=== PATIENT | female | born 1955 | race Caucasian/White ===

== ENCOUNTER 2024-01-18 10:05 | Outpatient (RCR) | payer MEDICARE, SELFPAY ==
[2024-01-18 10:20] VITALS: BP 128/73
[2024-01-18] MEDS: RECLAST 100 IV (10:50)
[2024-01-18 11:21] VITALS: BP 105/57
[2024-01-18] MEDS: FASENRA 30 MG SC (11:52)
== END 2024-01-19 23:59 | disposition home or self-care (01) ==
LOC: OID 10:05
PROVIDERS: ATTENDING PHYSICIAN Internal Medicine Critical Care Medicine; FAMILY PHYSICIAN Nurse Practitioner Family
DX: J45.50 Severe persistent asthma, uncomplicated (principal); M81.0 Age-related osteoporosis without current pathological fracture; R91.8 Other nonspecific abnormal finding of lung field
CPT/HCPCS: 36415; 96365; 96372; J0517; J3489

== ENCOUNTER → 2024-02-08 10:17 | Outpatient (REF) | payer MEDICARE, SELFPAY | LOC: HWWDC 10:17 | PROVIDERS: ATTENDING PHYSICIAN Obstetrics & Gynecology; FAMILY PHYSICIAN Nurse Practitioner Family | DX: Z12.31 Encounter for screening mammogram for malignant neoplasm of breast (principal) | CPT/HCPCS: 77063; 77067 ==

== ENCOUNTER 2024-03-14 14:41 | Outpatient (RCR) | payer MEDICARE, SELFPAY ==
[2024-03-14 14:50] VITALS: BP 126/61
[2024-03-14] MEDS: FASENRA 30 MG SC (14:57)
== END 2024-03-15 09:17 | disposition home or self-care (01) ==
LOC: OID 14:41
PROVIDERS: ATTENDING PHYSICIAN Internal Medicine Critical Care Medicine; FAMILY PHYSICIAN Nurse Practitioner Family
DX: J45.50 Severe persistent asthma, uncomplicated (principal); R91.8 Other nonspecific abnormal finding of lung field; M81.0 Age-related osteoporosis without current pathological fracture
CPT/HCPCS: 96372; J0517

== ENCOUNTER → 2024-03-22 15:08 | Outpatient (REF) | payer MEDICARE, SELFPAY | LOC: HWRAD 15:08 | PROVIDERS: ATTENDING PHYSICIAN Surgery; FAMILY PHYSICIAN Nurse Practitioner Family | DX: R10.2 Pelvic and perineal pain (principal) | CPT/HCPCS: 74178; Q9967 ==

== ENCOUNTER 2024-05-21 10:55 | Outpatient (RCR) | payer MEDICARE, SELFPAY ==
[2024-05-21 11:07] VITALS: BP 130/59
[2024-05-21] MEDS: FASENRA 30 MG SC (11:23)
== END 2024-05-21 14:51 | disposition home or self-care (01) ==
LOC: OID 10:55
PROVIDERS: ATTENDING PHYSICIAN Internal Medicine Critical Care Medicine; FAMILY PHYSICIAN Nurse Practitioner Family
DX: J45.50 Severe persistent asthma, uncomplicated (principal); R91.8 Other nonspecific abnormal finding of lung field; M81.0 Age-related osteoporosis without current pathological fracture; G47.33 Obstructive sleep apnea (adult) (pediatric)
CPT/HCPCS: 96372; J0517

== ENCOUNTER 2024-07-16 11:30 | Outpatient (RCR) | payer MEDICARE, SELFPAY ==
[2024-07-16 11:37] VITALS: BP 117/54
[2024-07-16] MEDS: FASENRA 30 MG SC (11:49)
== END 2024-07-17 09:07 | disposition home or self-care (01) ==
LOC: OID 11:30
PROVIDERS: ATTENDING PHYSICIAN Internal Medicine Critical Care Medicine; FAMILY PHYSICIAN Nurse Practitioner Family
DX: J45.50 Severe persistent asthma, uncomplicated (principal); R91.8 Other nonspecific abnormal finding of lung field
CPT/HCPCS: 96372; J0517

== ENCOUNTER 2024-09-10 11:37 | Outpatient (RCR) | payer MEDICARE, SELFPAY ==
[2024-09-10 11:45] VITALS: BP 130/60
[2024-09-10] MEDS: FASENRA 30 MG SC (11:58)
== END 2024-09-11 07:58 | disposition home or self-care (01) ==
LOC: OID 11:37
PROVIDERS: ATTENDING PHYSICIAN Internal Medicine Critical Care Medicine; FAMILY PHYSICIAN Nurse Practitioner Family
DX: J45.50 Severe persistent asthma, uncomplicated (principal); R91.8 Other nonspecific abnormal finding of lung field; M81.0 Age-related osteoporosis without current pathological fracture
CPT/HCPCS: 96372; J0517

== ENCOUNTER 2024-11-05 14:38 | Outpatient (RCR) | payer MEDICARE, SELFPAY ==
[2024-11-05 14:45] VITALS: BP 147/78
[2024-11-05] MEDS: FASENRA 30 MG SC (14:52)
== END 2024-11-06 09:39 | disposition home or self-care (01) ==
LOC: OID 14:38
PROVIDERS: ATTENDING PHYSICIAN Internal Medicine Critical Care Medicine; FAMILY PHYSICIAN Nurse Practitioner Family
DX: J45.50 Severe persistent asthma, uncomplicated (principal); R91.8 Other nonspecific abnormal finding of lung field; M81.0 Age-related osteoporosis without current pathological fracture
CPT/HCPCS: 96372; J0517

== ENCOUNTER 2024-11-20 12:07 | Emergency (ER) | payer MEDICARE, SELFPAY ==
[2024-11-20 12:21] VITALS: BP 129/93; BMI 30.9
--- NOTE | 2024-11-20 14:45 | ED.GENMED ---
History of Present Illness
<Alexander Seth DO, Resident - Last Filed: 11/20/24 14:57>
General
Chief Complaint: Fall
Source: patient and records
Time Seen by Provider: 11/20/24 14:02
History of Present Illness
History of Present Illness:
69-year-old female past medical history of left knee stem cell ACL repair, severe asthma, recent right hip replacement in June presents for a mechanical unwitnessed fall where she tripped over an extension cord. Patient reports she did not lose
consciousness, did not strike her head and does not take blood thinners. Patient reports she fell down directly onto her left knee and is now complaining of diffuse left knee pain. Patient reports pain is worse posterior medial knee, she is also
reporting some crunching sensation with knee flexion and extension.
Past History
<Alexander Seth DO, Resident - Last Filed: 11/20/24 14:57>
Past History
ED Past Medical History: Asthma, Hypercholesterolemia and Other (Diverticulitis, IBS,); Negative NIDDM
ED Past Surgical History: Gynecological (Uterine Ablation)
Social History
Tobacco: Former smoker
Alcohol: None
Personal:
Living: with family
Employment: Retired
Family History
Family History: Other (Noncontributory)
Review of Systems
<Alexander Seth DO, Resident - Last Filed: 11/20/24 14:57>
Review of Systems
Constitutional: Reports no symptoms
Respiratory: Reports no symptoms
Cardiac: Reports no symptoms
ABD/GI: Reports no symptoms
Musculoskeletal: Reports joint pain and joint swelling
Neurological: Reports no symptoms
Phy Exam
<Alexander Seth DO, Resident - Last Filed: 11/20/24 14:57>
General Physical Exam
General Presentation: well appearing and no apparent distress
Cardiovascular Exam
Cardiovascular Exam: regular rate/rhythm, no edema and no murmur
Pulmonary Exam
Pulmonary Exam: lungs clear, no respiratory distress and no crackles
Gastrointestinal Exam
Gastrointestinal Exam: non tender, soft and non distended
Musculoskeletal Exam
Musculoskeletal Exam: other (Left knee has full range of motion of both passive and active motion. Patient is restricted and active due to pain however has full range of motion. There is some edema and bruising present on left knee. Patient has
no pain and full range of motion of the left hip and left ankle.)
Course
<Alexander Seth DO, Resident - Last Filed: 11/20/24 14:57>
Orders/Labs/Results
Orders:
Orders
11/20/24 12:26
Knee, Left 1 or 2 Views [CR Knee - Left 1 Or 2 Views] Urgent
Comment:
Reason For Exam: Knee Pain post fall
11/20/24 14:44
Knee Immobilizer Left-Treatmen ONCE
Vital Signs
Initial and Last Documented VS:
Initial Vital Signs
Temp Pulse Resp BP Pulse Ox
98.6 F 82 18 129/93 98
11/20/24 12:21 11/20/24 12:21 11/20/24 12:21 11/20/24 12:21 11/20/24 12:21
Last Documented Vital Signs
Temp Pulse Resp BP Pulse Ox
98.6 F 82 18 129/93 98
11/20/24 12:21 11/20/24 12:21 11/20/24 12:21 11/20/24 12:21 11/20/24 12:21
<Manfred Nelson MD - Last Filed: 11/20/24 14:57>
Orders/Labs/Results
Orders:
Orders
11/20/24 12:26
Knee, Left 1 or 2 Views [CR Knee - Left 1 Or 2 Views] Urgent
Comment:
Reason For Exam: Knee Pain post fall
11/20/24 14:44
Knee Immobilizer Left-Treatmen ONCE
Vital Signs
Initial and Last Documented VS:
Initial Vital Signs
Temp Pulse Resp BP Pulse Ox
98.6 F 82 18 129/93 98
11/20/24 12:21 11/20/24 12:21 11/20/24 12:21 11/20/24 12:21 11/20/24 12:21
Last Documented Vital Signs
Temp Pulse Resp BP Pulse Ox
98.6 F 82 18 129/93 98
11/20/24 12:21 11/20/24 12:21 11/20/24 12:21 11/20/24 12:21 11/20/24 12:21
<Alexander Seth DO, Resident - Last Filed: 11/20/24 14:57>
MDM/Problems Addressed
Differential Diagnosis Includes:
Mechanical fall, musculoskeletal strain, meniscal tear, ligamental tear
MDM/Problems Addressed:
69 female past medical history of stem cell left knee ACL repair, recent right hip replacement presents for a unwitnessed mechanical fall, tripped over an extension cord
Patient reports she did not hit her head, did not pass out and does not take blood thinners
As for now she is complaining of severe left knee pain full range of motion to active and passive motion. Active motion is restricted due to pain but is able to fully flex and extend leg
Patient able to fully raise leg off bed
Sensation intact, pulses good
Left hip and left ankle are nontender and stable to exam
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
On exam, posterior and anterior drawer test are negative, lateral and medial valgus and varus stress test are also negative
Knee feels tight, no laxity present on exam
Very possible patient has a ligamentum tear which will not be appreciable until after her acute pain is subsided and spasms have stopped
Will give patient referral to [facility] orthopedics for follow-up
Ordered left knee immobilizer
Encourage pain management with Motrin and Tylenol, patient reports she has narcotics which she takes at home. Discouraged narcotic use
Offered crutches, patient reports she has a walker at home and will use that
Patient stable for discharge and follow-up with orthopedics and primary care physician, will send patient home with knee immobilizer
<Alexander Seth DO, Resident - Last Filed: 11/20/24 14:57>
*Critical Care Note
Total Time (30-74mins, 75-104mins- exclusive of procedures): Not Applicable
ED Attending Note
<Alexander Seth DO, Resident - Last Filed: 11/20/24 14:57>
-
Portions of this chart may have been created with voice recognition software.� Occasional wrong word or��sound alike� substitutions may have occurred due to the inherent limitations of voice recognition software.
<Manfred Nelson MD - Last Filed: 11/20/24 14:57>
ED Attending Note
Patient seen and examined by attending physician: Yes
I performed a history and physical exam of patient and discussed management with resident, I reviewed resident's note and agree with documented findings and plan of care.: Yes
ED Attending Note:
69-year-old female fell on her left knee last evening. Able to bear weight but with pain. No other injury or complaint. Denies head injury syncope chest pain abdominal pain. History of ACL stem cell repair in the past.
On exam patient is nontoxic in no distress. Normocephalic atraumatic. Neck nontender. No chest wall tenderness. No respiratory distress. Abdomen soft and nontender. Pelvis is stable. Right lower extremity unremarkable. No pain with left hip
rotation. Able to straight leg raise the left leg. No patellar tenderness. No obvious laxity. Negative Phil. Mild tenderness behind the left knee. Good distal pulses and color. Motor or sensory neurovascular intact.
X-rays unremarkable. Clinically knee strain contusion. Possible meniscal issue. Doubt ligamentous injury but does not change person today. Stressed need for orthopedic follow-up. Knee immobilizer. Patient has a walker.
Discharge Plan
Departure
Patient Disposition: Home (Routine Discharge)
Date of Disposition: 11/20/24
Time of Disposition: 14:53
Patient with high blood pressure during this ER visit?: Yes
Condition: Fair
Discharge Problem:
Fall from slip, trip, or stumble
Instructions: Knee Immobilizer (DC), BLOOD PRESSURE
Prescriptions:
No Action
clonazepam 0.5 MG tablet
1 mg PO HS
gabapentin 300 MG capsule
300 mg PO .NOON
gabapentin 300 MG capsule
600 mg PO BID
cholecalciferol (vitamin D3) 1,000 UNITS tablet
1,000 units PO .QPM
vitamin E (dl, acetate) 400 UNITS capsule
400 units PO HS
fluoxetine 20 MG capsule
20 mg PO BID
bupropion HCl 100 MG tablet sustained-release 12 hr
200 mg PO DAILY
azithromycin [Zithromax Z-German] 250 MG tablet
250 mg PO .MWF
montelukast 10 MG tablet
1 tab PO DAILY
ipratropium-albuterol 3 ML solution for nebulization
1 dose continuous nebulization BID
Trelegy Ellipta 200-62.5-25 mcg Blister With Device
1 inh INHALATION DAILY
oxycodone-acetaminophen 10-325 mg Tablet
1 tab PO Q6H PRN (Reason: pain)
Leqvio 284 mg/1.5 mL Syringe
284 mg SC [id number]
Fasenra 30 mg/mL Syringe
30 mg SC Q8W
acetaminophen [Tylenol Ex Str Rapid Release] 500 mg Tablet
500 mg PO BID
Referrals:
Dino Tran MD [Active] - Call in 1-3 days for appt
Jonathan Daley MD [Active] - Call in 1-3 days for appt
Shital Ibarra CRNP [Family Provider] - Call in 1-3 days for appt
Activity Restrictions/Additional Instructions:
Please use the knee immobilizer and walker/crutches until evaluated by orthopedics
Please use Tylenol/Motrin as needed for pain
Please follow-up with your primary care provider in 1 to 3 days, call for an appoint
Referrals attached for orthopedics, please reach out to Dr. Tran or Dr. Daley, both our orthopedic surgeon and schedule an appointment for follow-up with them
Please return the emergency department if your symptoms worsen, you are unable to bear weight on the leg, you notice your knee becomes hot and swollen or with any concerns
Interventions
Interventions:
*Risk Screen - Suicide Last Done: 11/20/24 12:21
*ED COVID-19 Vaccine History Last Done: 11/20/24 12:21
Discharge Date and Time
Print Language: UKRAINIAN
== END 2024-11-20 15:31 | disposition home or self-care (01) ==
LOC: EMR 12:07
PROVIDERS: EMERGENCY PHYSICIAN Emergency Medicine; FAMILY PHYSICIAN Nurse Practitioner Family
DX: S89.92XA Unspecified injury of left lower leg, initial encounter (principal); W18.09XA Striking against other object with subsequent fall, initial encounter; M17.12 Unilateral primary osteoarthritis, left knee; E78.00 Pure hypercholesterolemia, unspecified; J45.909 Unspecified asthma, uncomplicated; Z87.891 Personal history of nicotine dependence; Z96.641 Presence of right artificial hip joint
CPT/HCPCS: 29505; 99283; 73560

== ENCOUNTER 2025-01-17 11:04 | Outpatient (RCR) | payer MEDICARE, SELFPAY ==
[2025-01-17 11:15] VITALS: BP 122/74
[2025-01-17] MEDS: FASENRA 30 MG SC (11:31)
== END 2025-01-18 09:23 | disposition home or self-care (01) ==
LOC: OID 11:04
PROVIDERS: ATTENDING PHYSICIAN Internal Medicine Critical Care Medicine; FAMILY PHYSICIAN Nurse Practitioner Family
DX: J45.50 Severe persistent asthma, uncomplicated (principal); R91.8 Other nonspecific abnormal finding of lung field; Z87.891 Personal history of nicotine dependence; M81.0 Age-related osteoporosis without current pathological fracture
CPT/HCPCS: 96372; J0517

== ENCOUNTER → 2025-02-26 11:01 | Outpatient (REF) | payer MEDICARE, SELFPAY | LOC: HWWDC 11:01 | PROVIDERS: ATTENDING PHYSICIAN Nurse Practitioner Family; REFERRING PHYSICIAN Obstetrics & Gynecology | DX: Z12.31 Encounter for screening mammogram for malignant neoplasm of breast (principal) | CPT/HCPCS: 77063; 77067 ==

== ENCOUNTER 2025-03-14 10:37 | Outpatient (RCR) | payer MEDICARE, SELFPAY ==
[2025-03-14 11:00] VITALS: BP 114/61
[2025-03-14] MEDS: FASENRA 30 MG SC (11:06)
== END 2025-03-18 09:37 | disposition home or self-care (01) ==
LOC: OID 10:37
PROVIDERS: ATTENDING PHYSICIAN Internal Medicine Critical Care Medicine; FAMILY PHYSICIAN Nurse Practitioner Family
DX: J45.50 Severe persistent asthma, uncomplicated (principal); R91.8 Other nonspecific abnormal finding of lung field; M81.0 Age-related osteoporosis without current pathological fracture
CPT/HCPCS: 96372; J0517

== ENCOUNTER 2025-05-09 10:01 | Outpatient (RCR) | payer MEDICARE, SELFPAY ==
[2025-05-09 10:25] VITALS: BP 131/76
[2025-05-09] MEDS: FASENRA 30 MG SC (10:32)
== END 2025-05-10 09:30 | disposition home or self-care (01) ==
LOC: OID 10:01
PROVIDERS: ATTENDING PHYSICIAN Internal Medicine Critical Care Medicine; FAMILY PHYSICIAN Nurse Practitioner Family
DX: J45.50 Severe persistent asthma, uncomplicated (principal); R91.8 Other nonspecific abnormal finding of lung field; M81.0 Age-related osteoporosis without current pathological fracture
CPT/HCPCS: 96372; J0517

== ENCOUNTER 2025-06-24 06:23 | Day surgery (SDC) | payer MEDICARE, SELFPAY | END 2025-06-24 09:52 | disposition home or self-care (01) | LOC: GI 06:23 | PROVIDERS: ATTENDING PHYSICIAN Internal Medicine | DX: Z12.11 Encounter for screening for malignant neoplasm of colon (principal); D12.3 Benign neoplasm of transverse colon; K57.30 Diverticulosis of large intestine without perforation or abscess without bleeding; K64.9 Unspecified hemorrhoids; K62.89 Other specified diseases of anus and rectum; Z86.0101 Personal history of adenomatous and serrated colon polyps; Z98.890 Other specified postprocedural states; Z98.0 Intestinal bypass and anastomosis status; Z80.0 Family history of malignant neoplasm of digestive organs | CPT/HCPCS: 45385; 88305 ==

== ENCOUNTER 2025-07-04 10:03 | Outpatient (RCR) | payer MEDICARE, SELFPAY ==
[2025-06-25 10:42] VITALS: BP 123/70
[2025-06-25] MEDS: RECLAST 100 IV (11:00)
[2025-07-04 10:10] VITALS: BP 144/98
[2025-07-04] MEDS: FASENRA 30 MG SC (10:20)
== END 2025-07-05 07:46 | disposition home or self-care (01) ==
LOC: OID 10:03
PROVIDERS: ATTENDING PHYSICIAN Internal Medicine Critical Care Medicine; FAMILY PHYSICIAN Nurse Practitioner Family
DX: M81.0 Age-related osteoporosis without current pathological fracture (principal); J45.50 Severe persistent asthma, uncomplicated; R91.8 Other nonspecific abnormal finding of lung field
CPT/HCPCS: 96365; 96372; J0517; J3489

== ENCOUNTER 2025-08-29 10:10 | Outpatient (RCR) | payer MEDICARE, SELFPAY ==
[2025-08-29 10:20] VITALS: BP 131/74
[2025-08-29] MEDS: FASENRA 30 MG SC (10:33)
== END 2025-08-30 10:04 | disposition home or self-care (01) ==
LOC: OID 10:10
PROVIDERS: ATTENDING PHYSICIAN Internal Medicine Critical Care Medicine; FAMILY PHYSICIAN Nurse Practitioner Family
DX: M81.0 Age-related osteoporosis without current pathological fracture (principal); J45.50 Severe persistent asthma, uncomplicated; R91.8 Other nonspecific abnormal finding of lung field
CPT/HCPCS: 96372; J0517

== ENCOUNTER 2025-10-24 10:07 | Outpatient (RCR) | payer MEDICARE, SELFPAY ==
[2025-10-24 10:35] VITALS: BP 131/55
[2025-10-24] MEDS: FASENRA 30 MG SC (10:49)
== END 2025-10-25 10:54 | disposition home or self-care (01) ==
LOC: OID 10:07
PROVIDERS: ATTENDING PHYSICIAN Internal Medicine Critical Care Medicine; FAMILY PHYSICIAN Nurse Practitioner Family
DX: M81.0 Age-related osteoporosis without current pathological fracture (principal); J45.50 Severe persistent asthma, uncomplicated; R91.8 Other nonspecific abnormal finding of lung field
CPT/HCPCS: 96372; J0517